=== PATIENT | male | born 1940 | race Caucasian/White ===

== ENCOUNTER 2017-03-27 12:29 | Emergency (ER) | payer MEDICARE, OTHER ==
[~2017-03-27] VITALS: Ht 182.9 cm; Wt 108.9 kg
--- OUTSIDE RECORDS SUMMARY | ~2017-03-27 | XMS | Clinical Summary ---
Demographics + + + | Address | [address] | | | [place] [address] | + + + | Home Phone | | + + + | Preferred Language | Unknown | + + + | Marital Status | | + + + | Moravian Affiliation | Unknown | + + + | Race | White | + + + | Ethnic Group | Not or | + + + Author + + + | Author | [facility] | + + + | Organization | [facility] | + + + | Address | Unknown | + + + | Phone | Unavailable | + + + Support +------+ +---------+ + | Name | Relationship | Address | Phone | +------+ +---------+ + ECON | Unknown | | +------+ +---------+ + Care Team Providers + +------+-------+ | Care Taffy Puller Name | Role | Phone | + +------+-------+ | Piero Knight MD | PP | tel | + +------+-------+ Source Comments AMA is fully live on both [facility] Amb[facility] and [facility] InPatient.[facility] Allergies No Known Allergies Current Medications + + +-------+---------+------+------+-------+ | Prescription | Sig. | Disp. | Refills | Star | End | Statu | | | | | | t | Date | s | | | | | | Date | | | + + +-------+---------+------+------+-------+ | levothyroxine | Take 50 mcg by mouth | | | | | Activ | | (SYNTHROID) 50 mcg | once daily. | | | | | e | | oral tablet | | | | | | | + + +-------+---------+------+------+-------+ | atorvastatin | Take 10 mg by mouth | | | | | Activ | | (LIPITOR) 10 mg oral | once daily. | | | | | e | | tablet | | | | | | | + + +-------+---------+------+------+-------+ | tamsulosin 0.4 mg | Take 0.4 mg by mouth | | | | | Activ | | oral | two times daily. | | | | | e | | capsule,extended | | | | | | | | release 24hr | | | | | | | + + +-------+---------+------+------+-------+ | TRIAMCINOLONE | Instill in nose two | | | | | Activ | | ACETONIDE (NASACORT | times daily. | | | | | e | | NASL) | | | | | | | + + +-------+---------+------+------+-------+ | VIT C/VIT | Take by mouth once | | | | | Activ | | E/LUTEIN/MIN/OMEGA-3 | daily. | | | | | e | | (OCUVITE ORAL) | | | | | | | + + +-------+---------+------+------+-------+ | Coenzyme | Take 100 mg by mouth | | | | | Activ | | W08-Msramog E (COQ10 | once daily. | | | | | e | | SG 100) 100-100 | | | | | | | | mg-unit oral capsule | | | | | | | + + +-------+---------+------+------+-------+ | GLUC VILLARREAL/CHONDRO VILLARREAL | Take by mouth two | | | | | Activ | | A/VIT C/MN | times daily. | | | | | e | | (GLUCOSAMINE 1500 | | | | | | | | COMPLEX ORAL) | | | | | | | + + +-------+---------+------+------+-------+ | SILICON DIOXIDE, | once daily. | | | | | Activ | | BULK, MISC | | | | | | e | + + +-------+---------+------+------+-------+ | Psyllium Husk | Take by mouth two | | | | | Activ | | (METAMUCIL) 0.52 | times daily. | | | | | e | | gram oral capsule | | | | | | | + + +-------+---------+------+------+-------+ Active Problems No known active problems Family History + + +------+ + | Medical History | Relation | Name | Comments | + + +------+ + | High blood pressure | Paternal | | | | | Grandfath | | | | | er | | | + + +------+ + | High blood pressure | Paternal | | | | | Grandmoth | | | | | er | | | + + +------+ + | Cancer | Sister | | | + + +------+ + | Unexplained vision | | | Great Grandfather | | loss | | | | + + +------+ + + +------+--------+ + | Relation | Name | Status | Comments | + +------+--------+ + | Paternal Grandfather | | | | + +------+--------+ + | Paternal Grandmother | | | | + +------+--------+ + | Sister | | | | + +------+--------+ + Social History + +-------+ +--------+------+ | Tobacco Use | Types | Packs/Day | Years | Date | | | | | Used | | + +-------+ +--------+------+ | Never Smoker | | | | | + +-------+ +--------+------+ + + +---------+ + | Alcohol Use | Drinks/We | oz/Week | Comments | | | ek | | | + + +---------+ + | Yes | 5 | 2.5 | | | | Standard | | | | | drinks or | | | | | | | | | | equivalen | | | | | t | | | + + +---------+ + + + + | Sex Assigned at | Date Recorded | | | | + + + | Not on file | | + + + Plan of Treatment + + + + + | Health Maintenance | Due Date | Last Done | Comments | + + + + + | INFLUENZA VACCINE | | | | | (FLU SHOT) | 7 | | | + + + + + Results Not on filefrom Last 3 Months"
--- OUTSIDE RECORDS SUMMARY | ~2017-03-27 | XMS | Clinical Summary ---
Demographics + + + | Address | [address] | | | [place] [address] | + + + | Home Phone | | + + + | Preferred Language | Unknown | + + + | Marital Status | | + + + | Taoist Affiliation | Unknown | + + + | Race | White | + + + | Ethnic Group | Not or | + + + Author + + + | Author | [facility] | + + + | Organization | [facility] | + + + | Address | Unknown | + + + | Phone | Unavailable | + + + Support +------+ +---------+ + | Name | Relationship | Address | Phone | +------+ +---------+ + ECON | Unknown | | +------+ +---------+ + Care Team Providers + +------+-------+ | Care Auto Tech Name | Role | Phone | + +------+-------+ | Piero Knight MD | PP | tel | + +------+-------+ Source Comments AMA is fully live on both [facility] Ambulatory and [facility] InPatient.[facility] Allergies No Known Allergies Current Medications + [...] | | | | Activ | | G61-Qciucve E (COQ10 | once daily. | | [...]
[~2017-03-27 12:29] MED LIST: ABILIFY5 MG; BIOSIL PO; COQ10 SG 100 S1 EACH PO; FISH OIL 1,0001 EAC1; FLONASE ALLERG9.9 ML NS; GLUCOSAMINE &1 EAC1 PO; KEFLEX500 MG PO; LIPITOR10 MG PO; LORATADINE10 MG PO; MACUVITE WITH1 EACH PO; PERCOCET 7.5-31 EACH PO; PROSTATE HEALT1 EACH PO; SYNTHROID50 MCG PO; TAMSULOSIN HCL0.4 MG PO; VITAMIN C500 M1 PO; VITAMIN E400 UNI1; ZETIA10 MG
[2017-03-27] MEDS ORDERED: FINASTERIDE5 MG PO (13:05)
== END 2017-03-27 13:11 | disposition home or self-care (01) ==
LOC: ED 12:29
DX: R05 Cough (principal)

== ENCOUNTER 2019-12-10 12:55 | Day surgery (SDC) | payer MEDICARE, OTHER ==
[~2019-12-10 12:55] MED LIST changes: +ATORVASTATIN CA20 MG PO; +AUGMENTIN 875-1 EACH PO; +CINNAMON500 MG PO; +FINASTERIDE5 MG PO; +ULTRAM50 MG PO
[2019-12-10] MEDS ORDERED: AMLODIPINE BESYL5 MG PO (13:17)
--- NOTE | 2019-12-10 15:47 | NUR ---
12/10/19 1547 Alvina,Shakila 1458 PT ARRIVED TO PACU ON 4L VSS. PT WAKES EASILY AND PLAN OF CARE DISCUSSED. 1510 PT SITTING IN HIGH FOLWERS AND O2 REMOVED. PT SIPPING WATER. PT DENIES CONCERNS. 1520 DC INSTRUCTIONS GIVEN. PT GETTING DRESSED AND CALLED FOR [facility] HOME. DIVERTICULAR INFORMATION GIVEN. 1530 PT DC AND PAPERWORK GIVEN.
--- NOTE | 2019-12-11 13:48 | PATH ---
[facility] [address] [place], [place] [address] Signed SPECIMEN(S): A ASCENDING POLYP SPECIMEN(S): B DESCENDING POLYP SPECIMEN SOURCE: A. ASCENDING POLYP B. DESCENDING POLYP CLINICAL HISTORY: Colonoscopy. Colon polyps x 2, diverticulosis. MICROSCOPIC DESCRIPTION: Histologic sections of all submitted blocks are examined by light microscopy. These findings, together with the gross examination, support the pathologic diagnosis. FINAL PATHOLOGIC DIAGNOSIS: A. Colon, ascending, polyp, polypectomy: - Tubular adenoma. - Negative for high-grade dysplasia or malignancy. B. Colon, descending, polyp, polypectomy: - Fragments of tubular adenoma. - Negative for high-grade dysplasia or malignancy. NAL:[facility]:C2NR GROSS DESCRIPTION: Two specimens are received in two containers, labeled "RR." A. The specimen, labeled "RR, #1," and designated on the requisition "ascending colon polyp," is received in formalin and consists of one hoffman soft tissue fragment that measures 0.3 cm in greatest dimension. The specimen is entirely submitted in cassette (A1). B. The specimen, labeled "RR, #2," and designated on the requisition "descending colon polyp," is received in formalin and consists of one hoffman soft tissue polypoid fragment that measures 0.5 cm in greatest dimension. The specimen is entirely submitted in cassette (B1). AT (under the direct supervision of a pathologist) The Gross Description was prepared using a voice recognition system. The report was reviewed for accuracy; however, sound-alike word errors, addition and/or deletions may occur. If there is any question about this report, please contact Client Services. PERFORMING LABORATORY: The technical component was performed by edjing, En Jorgemayra Lee, PATIENT NAME: SUSSY JACOBSON PATHOLOGY DATE OF : 38 REPORT #: [id number] PHYSICIAN: TOMAS PATHOLOGY PCP: DANY BOONE MD REPORT IS CONFIDENTIAL AND NOT TO BE RELEASED WITHOUT AUTHORIZATION [facility] [address] [place], [place] [address] [place] [address] (Process Environmental Technician: Kathie Gonzales MD; CLIA# [id number]). Professional interpretation was performed by [facility], [address] [address] (CLIA# [id number]). Diagnostician: Seema Gauthier MD Pathologist Electronically Signed 12/11/2019 Copies: ~ PATIENT NAME: SUSSY JACOBSON PATHOLOGY DATE OF : 38 REPORT #: [id number] PHYSICIAN: TOMAS PATHOLOGY PCP: DANY BOONE MD REPORT IS CONFIDENTIAL AND NOT TO BE RELEASED WITHOUT AUTHORIZATION
--- NOTE | 2019-12-12 13:15 | OR ---
[facility] [address] [place], [place] [address] Signed DATE OF OPERATION: 12/10/2019 SURGEON: Sara Wilkinson MD PREOPERATIVE DIAGNOSES: 1. History of tubular adenoma five years ago. 2. Pre-bowel movement diffuse abdominal pain. POSTOPERATIVE DIAGNOSES: 1. Extensive diverticulosis, left colon. 2. Polyps x2 (left colon and right colon). PROCEDURES: Total colonoscopy to cecum with cold snare polypectomy x1 and cold morcellation polypectomy x1. ANESTHESIA: Intravenous sedation, fentanyl 100 mcg and Versed 5 mg. INDICATIONS: This 79-year-old white man is a patient of Dr. Callahan. The patient plans to move to [place] in the near future. The patient has undergone colonoscopy in the past by me five years ago, which showed a tubular adenoma. He has some diffuse abdominal pain prior to bowel movement. He has no pain upon defecation itself. He has had no blood per rectum. He is admitted at this time to undergo colonoscopy to better characterize the problem understand the risks of bleeding, infection, perforation. FINDINGS: The prep was good. Complete colonoscopy was undertaken of the cecum. There were extensive diverticular changes of the sigmoid and left colon. There were two polyps, both of them adenomatous in appearance, both excised completely, one in the right colon, one on the left. DESCRIPTION OF PROCEDURE: The patient was brought to the endoscopy suite and placed in lateral decubitus position, given intravenous sedation to a point of slurred speech and nystagmus. Digital rectal examination was normal. An Olympus video colonoscope was passed into the rectum and manipulated into the sigmoid, where numerous large mouthed diverticula were noted. The scope was relatively Electronically Signed By: SARA WILKINSON MD 12/12/19 1315 PATIENT NAME: SUSSY JACOBSON OPERATIVE REPORT DATE OF : 38 REPORT #: [id number] PHYSICIAN: SARA WILKINSON MD PCP: TRAY CALLAHAN MD REPORT IS CONFIDENTIAL AND NOT TO BE RELEASED WITHOUT AUTHORIZATION [facility] [address] [place], [place] [address] Signed easily manipulated beyond this, ultimately to the cecum. The ileocecal valve and appendiceal orifice were normal. Upon withdrawal of the scope into the right colon, there was a small polyp suggestive of an adenoma, this was excised with cold morcellation technique, it measured 4 mm at most. The scope was further withdrawn and numerous diverticula once again seen in the proximal left colon. At about 70 cm was a somewhat larger adenomatous appearing polyp, this was excised with cold snare technique without problem, there was no untoward bleeding. The scope was then withdrawn and numerous diverticula were seen throughout the sigmoid. The rectum was normal. Retroflexed view was normal. Scope was removed. The patient was taken to the recovery room in good condition. CONCLUDING DIAGNOSES: 1. Polyps x2. 2. Diverticulosis, most likely accounting for symptoms. PLAN: Recommend fiber supplement such as Citrucel or Metamucil 1 scoop daily. Recommend repeat colonoscopy later than five years from now or sooner if symptoms should occur. MD DIDI Nam/CHRISTOPHEL /[id number] cc: Tray Callahan MD Copies: TRAY CALLAHAN MD ~ Electronically Signed By: SARA WILKINSON MD 12/12/19 1315 PATIENT NAME: SUSSY JACOBSON OPERATIVE REPORT DATE OF : 38 REPORT #: [id number] PHYSICIAN: SARA WILKINSON MD PCP: TRAY CALLAHAN MD REPORT IS CONFIDENTIAL AND NOT TO BE RELEASED WITHOUT AUTHORIZATION
== END 2019-12-10 15:30 | disposition home or self-care (01) ==
LOC: OPS 12:55 → DS 12:55
PROVIDERS: ATTEND Surgery
PROC: 0DBM8ZZ Excision of Descending Colon, Via Natural or Artificial Opening Endoscopic (ICD-10-PCS; 2019-12-10)
PROC: 0DBK8ZZ Excision of Ascending Colon, Via Natural or Artificial Opening Endoscopic (ICD-10-PCS; principal; 2019-12-10 14:00)
DX: D12.2 Benign neoplasm of ascending colon (principal); D12.4 Benign neoplasm of descending colon; K57.30 Diverticulosis of large intestine without perforation or abscess without bleeding; I10 Essential (primary) hypertension; E03.9 Hypothyroidism, unspecified; N40.1 Benign prostatic hyperplasia with lower urinary tract symptoms; N13.8 Other obstructive and reflux uropathy; E78.00 Pure hypercholesterolemia, unspecified; G47.30 Sleep apnea, unspecified; Z23 Encounter for immunization; Z86.010 Personal history of colon polyps; Z79.899 Other long term (current) drug therapy; Z99.89 Dependence on other enabling machines and devices
CPT/HCPCS: 90662; 99153; G0500; J2250; J3010; J7121